=== PATIENT | male | born 1960 | race Caucasian/White ===

== ENCOUNTER 2019-09-02 09:43 | Inpatient (IN) | payer BC ==
[~2019-09-02] VITALS: Ht 182.9 cm; Wt 111.1 kg
[2019-09-02] MEDS ORDERED: GLIP5ER (09:51)
[2019-09-02 10:39] LABS: BASOPHILS ABSOLUTE AUTO 0.03 K/mm3 (0.00-0.23); BASOPHILS PERCENT AUTO 0 % (0-2); EOSINOPHILS PERCENT AUTO 0 % (0-6); Hematocrit 47.6 % (37.0-53.0); Hemoglobin 16.4 g/dL (13.5-17.5); IMMATURE GRAN ABSOLUTE AUTO 0.14 K/mm3 (0.00-0.10); IMMATURE GRAN PERCENT AUTO 1 % (0-1); LYMPHOCYTES ABSOLUTE AUTO 0.39 K/mm3 (0.84-5.20); LYMPHOCYTES PERCENT AUTO 2 % (21-46); MONOCYTES ABSOLUTE AUTO 1.52 K/mm3 (0.16-1.47); MONOCYTES PERCENT AUTO 9 % (4-13); Mean Corpuscular HGB 31.4 pg (26.0-34.0); Mean Corpuscular HGB Conc 34.5 g/dL (31.5-36.5); Mean Corpuscular Volume 91 fL (80-100); NEUTROPHILS PERCENT AUTO 88 % (41-73); Platelet Count 151 K/mm3 (150-400); RDW Coefficient Variation 12.3 % (11.7-14.2); RDW Standard Deviation 40.9 fL (35.1-46.3); Red Blood Cell Count 5.22 M/mm3 (4.30-5.90); White Blood Cell Count 17.18 K/mm3 (4.00-11.30)
[2019-09-02 10:43] LABS: Source, Urine Clean Catch
[2019-09-02 10:46] LABS: Bilirubin, Urine Neg (Neg); Blood, Urine 2+ (Neg); Glucose Qualitative, Urine 4+ (Neg); Ketones, Urine 3+ (Neg); Leukocyte Esterase, Urine Neg (Neg); Nitrite, Urine Neg (Neg); Protein, Urine 2+ (Neg); Urobilinogen, Urine NORM (Normal)
[2019-09-02 10:59] LABS: Alanine Aminotransfer (ALT/SGP 29 U/L (12-78); Albumin/Globulin Ratio 0.7 (0.8-1.8); Alk Phos 84 U/L (50-136); Anion Gap 9 mmol/L (6-16); Aspartate Aminotrans (AST/SGOT 35 U/L (12-37); Bilirubin, Total 1.3 mg/dL (0.1-1.0); Blood Urea Nitrogen 11 mg/dL (8-24); Bun/Creatinine Ratio 11.2 (12.0-20.0); CO2, Blood 24 mmol/L (21-32); Calcium, Blood 8.4 mg/dL (8.5-10.1); Chloride, Blood 100 mmol/L (98-108); Creatinine, Blood 0.99 mg/dL (0.60-1.20); Globulin, Blood 4.1 g/dL (2.2-4.0); Glomerular Filtration Rate >60 (60-); Glucose, Blood 304 mg/dL (70-99); Potassium, Blood 4.7 mmol/L (3.5-5.5); Sodium, Blood 133 mmol/L (136-145); Total Protein, Blood 7.1 g/dL (6.4-8.2)
[2019-09-02 11:06] LABS: Appearance, Urine Clear (Clear); Bacteria Not Seen /hpf; Color, Urine Yellow (P-Yellow); Red Blood Cells, Urine 0-2 /hpf (0-2); Squamous Epithelial Cells Few /hpf (Few); White Blood Cells, Urine Not Seen /hpf (0-5)
[2019-09-02] MEDS ORDERED: TRULICITY1.5 MG/0.1 SC (14:44)
[2019-09-02] MEDS ORDERED: SITA100T2 PO (14:44)
[2019-09-02] MEDS ORDERED: ACTOS30 MG PO (14:45)
[2019-09-02] MEDS ORDERED: GLIP10 PO (14:45)
--- NOTE | 2019-09-02 19:14 | NUR ---
PT ARRIVED TO UNIT FROM PACU TRANSFERRED TO BED FROM [facility]. CALL LIGHT IN REACH. CALLED HOSPITALIST CONSULT. REPORT GIVEN TO ONCOMING RN.
[2019-09-03 04:33] LABS: BASOPHILS ABSOLUTE AUTO 0.02 K/mm3 (0.00-0.23); BASOPHILS PERCENT AUTO 0 % (0-2); Hematocrit 44.7 % (37.0-53.0); Hemoglobin 14.6 g/dL (13.5-17.5); LYMPHOCYTES ABSOLUTE AUTO 0.48 K/mm3 (0.84-5.20); LYMPHOCYTES PERCENT AUTO 5 % (21-46); MONOCYTES ABSOLUTE AUTO 0.98 K/mm3 (0.16-1.47); MONOCYTES PERCENT AUTO 10 % (4-13); Mean Corpuscular HGB 30.4 pg (26.0-34.0); Mean Corpuscular HGB Conc 32.7 g/dL (31.5-36.5); Mean Corpuscular Volume 93 fL (80-100); Mean Platelet Volume 10.6 fL (9.1-12.4); Platelet Count 134 K/mm3 (150-400); RDW Standard Deviation 44.2 fL (35.1-46.3); Red Blood Cell Count 4.81 M/mm3 (4.30-5.90); White Blood Cell Count 10.07 K/mm3 (4.00-11.30)
[2019-09-03 04:34] LABS: EOSINOPHILS ABSOLUTE AUTO 0.01 K/mm3 (0.00-0.68); EOSINOPHILS PERCENT AUTO 0 % (0-6); IMMATURE GRAN ABSOLUTE AUTO 0.03 K/mm3 (0.00-0.10); IMMATURE GRAN PERCENT AUTO 0 % (0-1); NEUTROPHILS ABSOLUTE AUTO 8.55 K/mm3 (1.96-9.15); NEUTROPHILS PERCENT AUTO 85 % (41-73)
[2019-09-03 04:49] LABS: Bun/Creatinine Ratio 13.3 (12.0-20.0); Creatinine, Blood 1.5 mg/dL (0.60-1.20)
--- NOTE | 2019-09-03 06:31 | NUR ---
POD 1 S/P LAP APPY. VSS T/O NIGHT, SATS >90% ON RA. DRESSINGS CDI. LACHELLE PUTTING OUT SS DRNG. PAIN MGD W/PO PAIN MEDS W/REP RELIEF. UO DECREASEA, IS DARK WOJCIECH. IVF CONT PER ORDERS. PT JEOVANNY CL PO, NO N/V. PT AMB IN HALLS X1, JEOVANNY WELL. PT USING CALL LIGHT FOR ASSISTANCE, WILL CONT TO MONITOR UNTIL REP GIVEN TO ONCOMING RN.
--- NOTE | 2019-09-03 19:32 | NUR ---
SHIFT SUMMARY PT WAS EXHAUSTED & NOT FEELING WELL THIS AM BUT THIS AFTERNOON FEELING BETTER. AMBULATED IN HALLWAY BUT NOT PASSING GAS. ABD BLOATED.
--- NOTE | 2019-09-04 05:22 | NUR ---
SHIFT SUMMARY: CRISTINA IS POD2 LAP APPY FOR A RUPTURED APPENDIX. VSS, NO ACUTE EVENTS OVERNIGHT. HE REPORTS FEELING GAS MOVING IN HIS ABDOMEN, BUT HAS NOT PASSED ANY FLATUS OR STOOL YET. HE IS TOLERATING CLEARS WELL. HE HAS DENIED THE NEED FOR PAIN MEDICATION THIS SHIFT. HE IS A ONE PERSON STANDBY ASSIST TO THE BATHROOM, USES THE URINAL WITHOUT DIFFICULTY. HE USES HIS CALL LIGHT APPROPRIATELY. LAP SITES X 3 ON ABDOMEN C/D&I. LACHELLE W/SS DRAINAGE. HE IS LYING IN BED WITH THE CALL LIGHT IN REACH. WILL REPORT TO DAY SHIFT RN.
[2019-09-04 05:29] LABS: BASOPHILS ABSOLUTE AUTO 0.01 K/mm3 (0.00-0.23); BASOPHILS PERCENT AUTO 0 % (0-2); EOSINOPHILS ABSOLUTE AUTO 0.06 K/mm3 (0.00-0.68); EOSINOPHILS PERCENT AUTO 1 % (0-6); Hematocrit 42.8 % (37.0-53.0); Hemoglobin 14.1 g/dL (13.5-17.5); IMMATURE GRAN ABSOLUTE AUTO 0.04 K/mm3 (0.00-0.10); IMMATURE GRAN PERCENT AUTO 0 % (0-1); LYMPHOCYTES ABSOLUTE AUTO 0.59 K/mm3 (0.84-5.20); LYMPHOCYTES PERCENT AUTO 6 % (21-46); MONOCYTES ABSOLUTE AUTO 0.97 K/mm3 (0.16-1.47); MONOCYTES PERCENT AUTO 10 % (4-13); Mean Corpuscular HGB 30.5 pg (26.0-34.0); Mean Corpuscular HGB Conc 32.9 g/dL (31.5-36.5); Mean Corpuscular Volume 93 fL (80-100); Mean Platelet Volume 11.2 fL (9.1-12.4); NEUTROPHILS ABSOLUTE AUTO 7.87 K/mm3 (1.96-9.15); NEUTROPHILS PERCENT AUTO 83 % (41-73); Platelet Count 129 K/mm3 (150-400); RDW Coefficient Variation 12.9 % (11.7-14.2); Red Blood Cell Count 4.62 M/mm3 (4.30-5.90); White Blood Cell Count 9.54 K/mm3 (4.00-11.30)
--- NOTE | 2019-09-04 18:03 | NUR ---
SUMMARY PT SAT IN CHAIR FOR SEVERAL HOURS TODAY, SHOWERED AND AMBULATED IN ROOM. ABD DISTENDED PT DENIES PASSING FLATUS BUT HAS BELCHED A FEW TIMES AND CAN FEEL STOMACH "RUMBLING" AT TIMES. PT RESISTIVE TO PAIN MEDICATIONS STSTES HE JUST DOESNT LIKE TO TAKE. PT MEDICATED X1 WITH PO MEDS AND STATES HIS PAIN IS CONTROLLED TO ACCEPTABLE LEVEL. TAKING SIPS OF CLEAR LIQUIDS. ABD INCISIONS WITH STERI STRIPS IN PLACE. BRUISING AROUND LAP SITES MOST PRONOUNCED AT UMBILICAL AREA
--- NOTE | 2019-09-05 04:57 | NUR ---
SHIFT SUMMARY PT IS A/O X4 AND IND. IN ROOM. PAIN MANAGED WITH PO PAIN MED PER ORDERS. PT IS TOLERATING CLEAR LIQUIDS DIET AND VOIDING. HOWEVER PT HAS NOT PASSED GAS YET, ALTHOUGH HE DOES REPORT BURPING. LACHELLE DRAIN IN PLACE TO ABD. STERI STRIPS CDI. PT HAS BEEN UP TO BATHROOM SEVERAL TIMES T/O SHIFT AND IS CURRENTLY RESTING IN RECLINER CHAIR. NO ACUTE CHANGES OVERNIGHT. ASSISTED WITH ADL'S PRN.
--- NOTE | 2019-09-05 13:39 | NUR ---
pt jose luis in [facility]
--- NOTE | 2019-09-05 14:20 | NUR ---
report given to Jailene Singh RN who is assuming care of patient. pt sittin in chair and reports pain is adrquatly controlled. passed small amount of flatus
--- NOTE | 2019-09-05 17:23 | NUR ---
PT SLEEPING IN RECLINER WAKES TO VERBAL STIMULI MEDS GIVEN SCHED PT WANTING TO TRY SOME OF HIS CL DINNER
--- NOTE | 2019-09-06 06:42 | NUR ---
SHIFT SUMMARY POD 5 LAP APPY, DRESSINGS APPEAR INTACT. NO NEW DRAINAGE NOTED. APPEARS TO HAVE SLEPT WELL T/O SHIFT IN CHAIR- PER PT REQUEST. IS IND IN ROOM. JEOVANNY CL ONLY STILL. AMB SEVERAL TIMES IN HALLWAY. NO ACUTE CHANGES. PT IS CURRENTLY RESTING IN CHAIR WITH CALL LIGHT IN REACH. WILL CONT TO MONITOR AND GIVE REPORT TO ONCOMING RN.
--- NOTE | 2019-09-06 18:08 | NUR ---
Shift summary Patient tolerating clear liquid diet. Patient passing small amount of flatus. Abdomen distended and firm. Bowel tones active x4. Dressing CDI. LACHELLE Drain putting out small amount serosanguinous fluid. Patient has been independent in the room. Pain controlled with PO [place]. Patient has denied nausea. Call light within patient reach.
--- NOTE | 2019-09-07 07:20 | NUR ---
SUMMARY PT PASSING ONLY SMALL AMNTS FLATUS. VOIDING WITHOUT DIFF. INDEPENDANTLY REPOSTIONS AND OOB WITH MINIMAL SBA PRN. ABLE TO AMBULATE HALLS INDEPENDANTLY TONIGHT.
--- NOTE | 2019-09-07 14:02 | NUR ---
Report given to Anabel LEACH who will be resuming care. VSS. Patient tolerating full liquid diet. Patient passing flatus. Pain controlled with [place]. LACHELLE drain patent putting out small amount serosanguinous fluid. Dressing CDI. Patient encouraged to ambulate.
--- NOTE | 2019-09-07 14:06 | NUR ---
ASSUMING CARE OF PT FROM HAYLEE GREEN.
--- NOTE | 2019-09-07 17:35 | NUR ---
SUMMARY NO ACUTE CHANGES SINCE ASSUMING CARE OF PT. INDEPENDENT IN ROOM. COVERED CBG W/THREE UNITS PER ORDERS FOR BLOOD [place] OF 184. ABX INFUSING. SITTING UP IN RECLINER, TALKING ON PHONE. CALL LIGHT IN REACH.
--- NOTE | 2019-09-08 05:29 | NUR ---
SHIFT SUMMARY PT A/OX4 WITH VSS. POD #6 LAP APPY, STERI STRIPS DRY/INTACT. LACHELLE DRAINING SS FLUID WITH DRESSING C/D/I. PT REPORTS HAVING BM'S AND PASSING FLATUS. JEOVANNY REG DIET, DENIES N/V. IND IN ROOM. AMB IN HALLWAYS. PT APPEARST TO CURRENTLY BE RESTING IN BED WITH EYES CLOSED. HAS CALL LIGHT IN REACH. WILL CONT TO MONITOR AND GIVE REPORT TO ONCOMING RN.
[2019-09-08 10:36] LABS: BASOPHILS ABSOLUTE AUTO 0.04 K/mm3 (0.00-0.23); BASOPHILS PERCENT AUTO 0 % (0-2); EOSINOPHILS ABSOLUTE AUTO 0.17 K/mm3 (0.00-0.68); EOSINOPHILS PERCENT AUTO 2 % (0-6); Hematocrit 41.9 % (37.0-53.0); Hemoglobin 13.8 g/dL (13.5-17.5); IMMATURE GRAN ABSOLUTE AUTO 0.08 K/mm3 (0.00-0.10); IMMATURE GRAN PERCENT AUTO 1 % (0-1); LYMPHOCYTES PERCENT AUTO 12 % (21-46); MONOCYTES PERCENT AUTO 9 % (4-13); Mean Corpuscular HGB 30.3 pg (26.0-34.0); Mean Corpuscular HGB Conc 32.9 g/dL (31.5-36.5); Mean Corpuscular Volume 92 fL (80-100); Mean Platelet Volume 10.8 fL (9.1-12.4); NEUTROPHILS ABSOLUTE AUTO 7.99 K/mm3 (1.96-9.15); NEUTROPHILS PERCENT AUTO 77 % (41-73); Platelet Count 241 K/mm3 (150-400); RDW Coefficient Variation 12.7 % (11.7-14.2); Red Blood Cell Count 4.55 M/mm3 (4.30-5.90); White Blood Cell Count 10.38 K/mm3 (4.00-11.30)
--- NOTE | 2019-09-08 18:20 | NUR ---
SHIFT SUMMARY PT HAS FELT MUCH BETTER TODAY. AMBULATED IN HALLWAYS EASILY. PAIN AVERAGING A 2/10 T/O SHIFT. PASSING GAS AND BMS.
--- NOTE | 2019-09-09 04:42 | NUR ---
SHIFT SUMMARY S/P LAP APPY, STERI STRIPS DRY/INTACT. NO ACUTE CHANGES THIS SHIFT. PAIN WELL CONTROLLED, DENIED NEED FOR PAIN MEDICATION T/O SHIFT. IS IND IN ROOM, AMB IN HALLWAYS. JEOVANNY FULL LIQUID DIET. APPEARS TO HAVE SLEPT WELL. IS CURRENTLY RESTING IN BED WITH CALL LIGHT IN REACH. WILL CONT TO MONITOR AND GIVE REPORT TO ONCOMING RN.
[2019-09-09] MEDS ORDERED: OXYC5 PO (11:38)
--- NOTE | 2019-09-09 13:30 | NUR ---
DISCHARGE PT VOIDING WELL, PASSING GAS, HAVING BMS, TOLERATING REG DIET, PAIN WELL MANAGED. AMBULATES OUT AFTER DECLINING W/C.
== END 2019-09-09 13:30 | disposition home or self-care (01) | DRG 340 ==
LOC: ER 09:43 → SURS 15:22
PROVIDERS: Emergency Medicine; ADMIT Surgery
PROC: 0DTJ4ZZ Resection of Appendix, Percutaneous Endoscopic Approach (ICD-10-PCS; principal; 2019-09-02 13:30)
DX: K35.32 Acute appendicitis with perforation, localized peritonitis, and gangrene, without abscess (principal); I10 Essential (primary) hypertension; E11.65 Type 2 diabetes mellitus with hyperglycemia; J44.9 Chronic obstructive pulmonary disease, unspecified; N40.0 Benign prostatic hyperplasia without lower urinary tract symptoms; E11.40 Type 2 diabetes mellitus with diabetic neuropathy, unspecified; Z87.891 Personal history of nicotine dependence; Z79.84 Long term (current) use of oral hypoglycemic drugs
CPT/HCPCS: 36415; 51701; 74177; 80048; 80053; 81001; 82947; 83690; 85025; 88304; 96361-59; 96365-59; 96375-59; 99285-25; A9270-GY; J0295; J1170; J1650; J1815; J1885; J2270; J2405; J2543; J2704; J2765; J3010; J7030; J7120; Q9967; U0002